=== PATIENT | female | born 1990 | race Caucasian/White ===

== ENCOUNTER 2016-12-17 00:31 | Emergency (ER) | payer SELFPAY ==
[~2016-12-17] VITALS: Wt 68.2 kg
[~2016-12-17 00:31] MED LIST: ACET500C5 PO; CEPH-443 PO; DENIES
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
== END 2016-12-17 03:12 | disposition left against medical advice (07) ==
LOC: FTE 00:31 → E/R 03:12
DX: O9A.211 Injury, poisoning and certain other consequences of external causes complicating pregnancy, first trimester (principal); S19.9XXA Unspecified injury of neck, initial encounter; S49.91XA Unspecified injury of right shoulder and upper arm, initial encounter; Y04.0XXA Assault by unarmed brawl or fight, initial encounter; Z3A.12 12 weeks gestation of pregnancy
CPT/HCPCS: 99282

== ENCOUNTER 2017-06-25 20:44 | Outpatient (CLI) | payer MEDICAID ==
[~2017-06-25] VITALS: Ht 160 cm; Wt 79.2 kg
[2017-06-25 21:22] VITALS: BP 120/71; PULSE 93; RESP 18
[2017-06-25] MEDS ORDERED: PREN1COM PO (21:26)
--- NOTE | 2017-06-25 22:29 | RADRPT ---
PROCEDURE: US biophysical profile. CLINICAL INDICATION: 89 of 37 weeks gestational age. TECHNIQUE: Multiple sonographic images of the uterus were obtained. The images were revi ewed on a PACS workstation. COMPARISON: No prior studies are available for comparison. FINDINGS: There is a single live intrauterine gestation. heart rate is 163 beats per minute. The position is cephalic. The placenta is anterior grade II with no abruption or previa. The ALY is 22.3 cm. (Normal = 5-20 cm.) Breathing Movement: 2 Gross Body Movement: 2 Tone: 2 Qualitative Amniotic Fluid Volume: 2 TOTAL: 8 IMPRESSION: 1. The biophysical score is 8/8. RPTAT: QQ .Rod Garcia MD, MD Date Time Electronically viewed and signed by .Rod Garcia MD, on 06/25/2017 22:29 .R/
--- NOTE | 2017-06-25 22:31 | RADRPT ---
PROCEDURE: US OB. CLINICAL INDICATION: labor at 37 weeks gestational age. TECHNIQUE: Multiple sonographic images of the uterus were obtained. The images were revi ewed on a PACS workstation. COMPARISON: No prior studies are available for comparison. FINDINGS: There is a single live intrauterine gestation. heart rate is 116 beats per minute. Measurements were made in order to determine age. The results are as follows: BPD = 8.74 cm. HC = 30.85 cm. AC = 33.18 cm. FL = 6.73 cm. Estimated weight is 2816 +/- 422 grams. LMP growth percentile is 27 %. Menstrual age by ultrasound dates is 35 weeks 3 days. The estimated date of delivery is 07/27/2017. Position is cephalic and placenta is anterior grade II. There is no evidence for an abruption or lori centa previa. IMPRESSION: 1. Single live intrauterine gestation of 35 weeks 3 days menstrual age by ultrasound dates. 2. The estimated date of delivery is 07/27/2017. RPTAT: QQ .Rod Garcia MD, Date Time Electronically viewed and signed by .Rod Garcia MD, on 06/25/2017 22:30 .R/
[2017-06-25 22:44] LABS: ADD UMIC YES; UR ASCORBIC ACID NEGATIVE (NEGATIVE); UR BACTERIA FEW /HPF (NONE SEEN); UR BILIRUBIN (Dip) NEGATIVE (NEGATIVE); UR BLOOD (Dip) 2+ mg/dL (NEGATIVE); UR CLARITY CLOUDY (CLEAR); UR COLOR YELLOW (YELLOW); UR GLUCOSE (Dip) NEGATIVE (NEGATIVE); UR KETONES (Dip) NEGATIVE (NEGATIVE); UR LEUKOCYTE ESTERASE (Dip) 3+ Leu/ul (NEGATIVE); UR MUCUS FEW /HPF (NONE SEEN); UR NITRITE (Dip) NEGATIVE (NEGATIVE); UR RBC 50 /HPF (0-5); UR SPECIFIC GRAVITY (Dip) 1.015 (1.003-1.030); UR SQUAMOUS EPITHELIAL CELL MANY /HPF (FEW); UR TOTAL PROTEIN (Dip) 1+ mg/dl (NEGATIVE); UR UROBILINOGEN (Dip) NEGATIVE (NEGATIVE)
[2017-06-25 23:09] LABS: BARBITURATES Negative (NEGATIVE); BENZODIAZEPINES Negative (NEGATIVE); CANNABINOIDS Negative (NEGATIVE); COCAINE Negative (NEGATIVE); OPIATES Negative (NEGATIVE)
--- NOTE | 2017-06-26 00:13 | QN ---
Documentation Comment iup 37 weeks lof vss exam wnl Rom neg a/p iup 37 weeks [facility] VALARIE PALMA MD Jun 26, 2017 00:13
== END 2017-06-25 23:30 | disposition home or self-care (01) ==
LOC: OBT 20:44 → L-D 20:48 → OBT 23:30
DX: O47.1 False labor at or after 37 completed weeks of gestation (principal); Z3A.37 37 weeks gestation of pregnancy
CPT/HCPCS: 76815; 76818; 80307; 81001; 84112; G0463